=== PATIENT | male | born 1985 | race Caucasian/White ===

== ENCOUNTER 2022-07-29 22:13 | Emergency (ER) | payer OTHER ==
[2022-07-29] MEDS ORDERED: Sodium Chloride 0.9% 1,000 ML IV ONE (22:53)
[2022-07-29] MEDS ORDERED: Sodium Chloride 0.9% 2.5 ML Syringe FLUSH PRN (22:53)
[2022-07-29] MEDS ORDERED: Sodium Chloride 0.9% 10 ML Syringe FLUSH PRN (22:53)
[2022-07-29 23:51] LABS: CARBON DIOXIDE,CO2 31.5 mmol/L (21.0-32.0); POTASSIUM,K 3.7 mmol/L (3.5-5.1)
[2022-07-30 00:02] LABS: CORONAVIRUS COVID-19 NAA NEGATIVE (NEGATIVE); INFLUENZA A NAA NEGATIVE (NEGATIVE); INFLUENZA B NAA NEGATIVE (NEGATIVE); RESPIRATORY SYNCYTIAL VIR NAA NEGATIVE (NEGATIVE)
[2022-07-30] MEDS ORDERED: Ketorolac 30 MG/ML SDV IVPUSH ONE (00:41)
[2022-07-30 01:29] VITALS: BP 100/55; PULSE 71
== END 2022-07-30 01:26 | disposition home or self-care (01) ==
LOC: MW.ED 22:13
DX: R51.9 Headache, unspecified (principal); R06.02 Shortness of breath; I10 Essential (primary) hypertension; Z88.2 Allergy status to sulfonamides; Z20.822 Contact with and (suspected) exposure to COVID-19
CPT/HCPCS: 0241U; 36415; 70450; 71045; 80053; 81001; 84484; 85025; 85379; 93005; 96361; 96374; 99284; J1885; J3490; J7030

== ENCOUNTER 2022-12-12 19:36 | Emergency (ER) | payer OTHER ==
[2022-12-12] MEDS ORDERED: Acetaminophen 500 MG Tab PO ONE (20:40)
[2022-12-12] MEDS ORDERED: Ketorolac 30 MG/ML SDV IVPUSH ONE (20:40)
[2022-12-12] MEDS ORDERED: Sodium Chloride 0.9% 2.5 ML Syringe FLUSH PRN (20:40)
[2022-12-12] MEDS ORDERED: metroNIDAZOLE/Normal Saline 500 MG in Premix Bag 1 BAG IV ONE (20:40)
[2022-12-12] MEDS ORDERED: Sodium Chloride 0.9% 1,000 ML IV ONE (20:40)
[2022-12-12] MEDS ORDERED: cefTRIAXone 2 GM in Sodium Chloride 0.9% 50 ML IV ONE (20:40)
[2022-12-12] MEDS ORDERED: Sodium Chloride 0.9% 10 ML Syringe FLUSH PRN (20:40)
[2022-12-12 21:29] LABS: BASOPHILS PERCENT AUTO 0.2 % (0.0-1.5); EOSINOPHILS ABSOLUTE AUTO 0.1 K/uL (0.0-0.7); EOSINOPHILS PERCENT AUTO 0.9 % (0.0-7.0); HEMATOCRIT 46.3 % (38.0-50.0); HEMOGLOBIN 15.2 g/dL (13.0-17.0); LYMPHOCYTES ABSOLUTE AUTO 2.1 K/uL (0.6-2.4); LYMPHOCYTES PERCENT AUTO 18.4 % (16.0-40.0); MEAN CORPUSCULAR HEMOGLOBIN 28.3 pg (27.0-32.0); MEAN CORPUSCULAR HGB CONC 32.8 g/dL (31.0-37.0); MEAN CORPUSCULAR VOLUME 86.2 fL (80.0-98.0); MONOCYTES ABSOLUTE AUTO 0.7 K/uL (0.0-0.8); MONOCYTES PERCENT AUTO 6.3 % (0.0-15.0); NEUTROPHILS ABSOLUTE AUTO 8.6 K/uL (1.4-5.7); NEUTROPHILS PERCENT AUTO 74.2 % (48.0-80.0); NRBC ABSOLUTE 0 K/uL; PLATELET COUNT,PLT 242 K/uL (150-400); RED BLOOD CELL COUNT 5.37 M/uL (4.50-5.90); WHITE BLOOD CELL COUNT,WBC 11.55 K/uL (4.0-11.0)
[2022-12-12 21:44] LABS: INR 0.99 (0.86-1.11)
[2022-12-12 21:54] LABS: A/G RATIO 0.9 (0.9-1.6); ALBUMIN 3.8 g/dL (3.4-5.0); BILIRUBIN TOTAL 0.6 mg/dL (0.2-1.0); CALCIUM 8.5 mg/dL (8.5-10.1); CARBON DIOXIDE,CO2 30.9 mmol/L (21.0-32.0); CREATININE 1.4 mg/dL (0.8-1.3); EST CRCL DRUG DOSING (CG) 82.36 mL/min; PROTEIN TOTAL,TP 7.8 g/dL (6.4-8.2)
[2022-12-12 22:01] LABS: LACTIC ACID 0.7 mmol/L (0.4-2.0)
[2022-12-12 22:38] VITALS: BP 156/78; PULSE 79
== END 2022-12-12 22:28 ==
LOC: MW.ED 19:36
DX: S61.451A Open bite of right hand, initial encounter (principal); L03.113 Cellulitis of right upper limb; I10 Essential (primary) hypertension; Z88.2 Allergy status to sulfonamides; W54.0XXA Bitten by dog, initial encounter
CPT/HCPCS: 36415; 73130; 80053; 83605; 84145; 85025; 85610; 85652; 86140; 87040; 96365; 96367; 96375; 99284; A9270; J0696; J1885; J3490; J7030; 99285

== ENCOUNTER 2023-06-09 02:17 | Emergency (ER) | payer OTHER ==
[2023-06-09] MEDS ORDERED: Amoxicillin/Clavulanate K 875-125 MG Tab PO ONE (02:23)
[2023-06-09] MEDS ORDERED: Ibuprofen 600 MG Tab PO ONE (02:24)
[2023-06-09] MEDS ORDERED: Bacitracin Oint 1 GM U/D Packet TOP ONE (02:46)
[2023-06-09 02:55] VITALS: BP 133/86
[2023-06-09 02:59] VITALS: PULSE 87
== END 2023-06-09 02:45 | disposition home or self-care (01) ==
LOC: MW.ED 02:17
DX: S60.221A Contusion of right hand, initial encounter (principal); I10 Essential (primary) hypertension; Z88.2 Allergy status to sulfonamides; Z79.899 Other long term (current) drug therapy; Y04.0XXA Assault by unarmed brawl or fight, initial encounter
CPT/HCPCS: 73140; 99283; A9270